=== PATIENT | female | born 1965 | race Caucasian/White ===

== ENCOUNTER 2017-11-25 08:03 | Outpatient (CLI) | payer OTHER | END 2017-11-25 08:29 | disposition home or self-care (01) | LOC: RAD 08:03 | DX: N20.1 Calculus of ureter (principal) ==

== ENCOUNTER 2017-11-27 05:45 | Day surgery (SDC) | payer OTHER | END 2017-11-27 12:35 | disposition home or self-care (01) | LOC: CIR.AMB 05:45 | DX: N20.1 Calculus of ureter (principal) ==